=== PATIENT | female | born 1995 | race Hispanic/Latino ===

== ENCOUNTER 2017-04-09 17:16 | Emergency (ER) | payer SELFPAY ==
[~2017-04-09 17:16] MED LIST: FERR325C PO; PREN-64 PO
== END 2017-04-09 18:13 | disposition home or self-care (01) ==
LOC: EDH 17:16
DX: L02.219 Cutaneous abscess of trunk, unspecified (principal)
CPT/HCPCS: 81025

== ENCOUNTER 2017-09-20 11:42 | Inpatient (IN) | payer MEDICAID, OTHER ==
[~2017-09-20] VITALS: Ht 160 cm; Wt 71.9 kg
[2017-09-20 12:25] LABS: BASOPHILS % (AUTO) 0.1 % (0.0-5.0); EOSINOPHILS % (AUTO) 0.1 % (0.0-8.0); HEMATOCRIT 28.9 % (36-48); LYMPHOCYTES % (AUTO) 2.6 % (21.0-51.0); MEAN CORPUSCULAR HGB CONC 32.8 g/dL (32.0-36.0); MEAN CORPUSCULAR VOLUME 76.3 fL (80-100); MONOCYTES % (AUTO) 1.5 % (3.0-13.0); NEUTROPHILS % (AUTO) 95.7 % (40.0-77.0); PLATELET COUNT (AUTO) 252 K/uL (130-400); RED BLOOD CELL COUNT(AUTO) 3.78 MIL/uL (4.00-5.50); RED CELL DISTRIBUTION WIDTH 15.6 % (11.0-15.5); WHITE BLOOD COUNT (AUTO) 12.7 K/uL (4.8-10.8)
[2017-09-20 12:38] LABS: APPEARANCE,URINE Turbid (CLEAR); BILIRUBIN,URINE Negative (NEGATIVE); COLOR,URINE Dark Yellow (YELLOW); GLUCOSE, URINE (UA) Negative (NEGATIVE); KETONES,URINE Negative (NEGATIVE); LEUKOCYTE ESTERASE ,URINE Large (NEGATIVE); NITRATE,URINE Positive (NEGATIVE); OCCULT BLOOD,URINE Moderate (NEGATIVE); PROTEIN,URINE POS 2+ (NEGATIVE)
[2017-09-20 12:55] LABS: BACTERIA,URINE Moderate /HPF (None Seen); WBC,URINE >100 /HPF (0-1)
[2017-09-20 12:56] LABS: MUCUS,URINE Few LPF (None Seen); SQUAMOUS EPITHELIAL CELL,UR Moderate /HPF (0-2)
[2017-09-20] MEDS ORDERED: CEFTRIAXONE 1GM/D5W 50ML 50 ML IV SCH (13:00)
[2017-09-20] MEDS ORDERED: CEFAZOLIN 2GM / 50 ML 50 ML IV SCH (13:00)
[2017-09-20] MEDS ORDERED: CEFTRIAXONE SODIUM 1 GM IVP SCH (13:15)
[2017-09-20 13:42] VITALS: BP 100/59
[2017-09-20] MEDS: LACTATED RINGERS 1000ML 1,000 ML IV PRN ×2 (13:50→22:48)
[2017-09-20] MEDS: ACETAMINOPHEN 325 MG TAB PO PRN ×2 (13:51→18:57)
[2017-09-20] MEDS: CEFAZOLIN SODIUM 1 GM VIAL IVP SCH ×2 (15:18→22:49)
[2017-09-20 15:37] VITALS: BP 98/64
[2017-09-20 19:46] VITALS: BP 102/65
[2017-09-20 23:21] VITALS: BP 90/55
[2017-09-21 04:10] VITALS: BP 95/59
[2017-09-21] MEDS: CEFAZOLIN SODIUM 1 GM VIAL IVP SCH ×3 (06:31→20:16)
[2017-09-21] MEDS: LACTATED RINGERS 1000ML 1,000 ML IV PRN ×2 (06:35→14:03)
[2017-09-21 07:16] VITALS: BP 90/56
[2017-09-21 08:31] LABS: BASOPHILS % (AUTO) 0.2 % (0.0-5.0); HEMATOCRIT 26.7 % (36-48); LYMPHOCYTES % (AUTO) 10.7 % (21.0-51.0); MEAN CORPUSCULAR HEMOGLOBIN 25.2 pg (27.0-33.0); MEAN CORPUSCULAR HGB CONC 32.8 g/dL (32.0-36.0); MEAN CORPUSCULAR VOLUME 76.9 fL (80-100); MONOCYTES % (AUTO) 7.3 % (3.0-13.0); NEUTROPHILS % (AUTO) 80.8 % (40.0-77.0); PLATELET COUNT (AUTO) 235 K/uL (130-400); RED BLOOD CELL COUNT(AUTO) 3.48 MIL/uL (4.00-5.50); RED CELL DISTRIBUTION WIDTH 15.4 % (11.0-15.5); WHITE BLOOD COUNT (AUTO) 9.7 K/uL (4.8-10.8)
[2017-09-21] MEDS: ACETAMINOPHEN 325 MG TAB PO PRN ×2 (11:17→21:36)
[2017-09-21 11:22] VITALS: BP 97/55
[2017-09-21 15:40] VITALS: BP 92/62
[2017-09-21 20:30] VITALS: BP 111/71
[2017-09-21 22:35] VITALS: BP 100/66
[2017-09-22] MEDS: LACTATED RINGERS 1000ML 1,000 ML IV PRN ×2 (01:01→07:32)
[2017-09-22] MEDS: CEFAZOLIN SODIUM 1 GM VIAL IVP SCH ×2 (03:42→11:40)
[2017-09-22 03:55] VITALS: BP 98/66
[2017-09-22 07:33] LABS: BASOPHILS % (AUTO) 0.8 % (0.0-5.0); EOSINOPHILS % (AUTO) 0.5 % (0.0-8.0); HEMATOCRIT 27.1 % (36-48); LYMPHOCYTES % (AUTO) 12.9 % (21.0-51.0); MEAN CORPUSCULAR HEMOGLOBIN 25.1 pg (27.0-33.0); MEAN CORPUSCULAR HGB CONC 32.9 g/dL (32.0-36.0); MEAN CORPUSCULAR VOLUME 76.3 fL (80-100); MONOCYTES % (AUTO) 8.7 % (3.0-13.0); NEUTROPHILS % (AUTO) 77.1 % (40.0-77.0); PLATELET COUNT (AUTO) 233 K/uL (130-400); RED BLOOD CELL COUNT(AUTO) 3.56 MIL/uL (4.00-5.50); RED CELL DISTRIBUTION WIDTH 15.2 % (11.0-15.5); WHITE BLOOD COUNT (AUTO) 9.1 K/uL (4.8-10.8)
[2017-09-22 08:00] VITALS: BP 103/69
[2017-09-22 12:00] VITALS: BP 102/64
== END 2017-09-22 15:40 | disposition home or self-care (01) | DRG 566 ==
LOC: OBSVTOIN 11:42 → LDH 11:42 → WSH 13:29
PROVIDERS: ADMIT Obstetrics & Gynecology; ATTEND Obstetrics & Gynecology
DX: O99.612 Diseases of the digestive system complicating pregnancy, second trimester (principal); M54.9 Dorsalgia, unspecified; R10.9 Unspecified abdominal pain; R51 Headache; Z3A.23 23 weeks gestation of pregnancy
CPT/HCPCS: 36415; 81001; 85025; 87088; 87186; A4218; J0690; J0696; J7120

== ENCOUNTER 2017-12-21 09:28 | Observation (INO) | payer MEDICAID ==
[~2017-12-21] VITALS: Ht 160 cm; Wt 74.4 kg
[2017-12-21] MEDS: LACTATED RINGERS 1000ML 1,000 ML IV SCH ×2 (17:15→20:00)
[2017-12-21] MEDS ORDERED: CEFTRIAXONE SODIUM 1 GM IVP SCH (17:15)
[2017-12-21 18:16] LABS: APPEARANCE,URINE Clear (CLEAR); BILIRUBIN,URINE Negative (NEGATIVE); COLOR,URINE Yellow (YELLOW); GLUCOSE, URINE (UA) Negative (NEGATIVE); KETONES,URINE Negative (NEGATIVE); LEUKOCYTE ESTERASE ,URINE Moderate (NEGATIVE); NITRATE,URINE Negative (NEGATIVE); OCCULT BLOOD,URINE Small (NEGATIVE); PH,URINE 6.5 (5.0-8.0); PROTEIN,URINE Negative (NEGATIVE)
[2017-12-21 18:28] LABS: BACTERIA,URINE None Seen /HPF (None Seen)
[2017-12-21] MEDS ORDERED: LACTATED RINGERS 1000ML 1,000 ML IV PRN (20:13)
[2017-12-21 20:26] LABS: HEMATOCRIT 26.5 % (36-48); MEAN CORPUSCULAR HEMOGLOBIN 21.3 pg (27.0-33.0); MEAN CORPUSCULAR HGB CONC 30.5 g/dL (32.0-36.0); PLATELET COUNT (AUTO) 216 K/uL (130-400); RED BLOOD CELL COUNT(AUTO) 3.79 MIL/uL (4.00-5.50); RED CELL DISTRIBUTION WIDTH 16.7 % (11.0-15.5); WHITE BLOOD COUNT (AUTO) 11.7 K/uL (4.8-10.8)
[2017-12-21] MEDS ORDERED: BUTORPHANOL TARTRATE 2 MG/ML IVP ONE (23:00)
[2017-12-21] MEDS ORDERED: ACETAMINOPHEN EXTRA STRENGTH 500 MG TABLET PO SCH (23:00)
[2017-12-21] MEDS ORDERED: BUTORPHANOL TARTRATE 2 MG/ML ONE (23:18)
[2017-12-21] MEDS ORDERED: ACETAMINOPHEN EXTRA STRENGTH 500 MG TABLET ONE (23:19)
[2017-12-23 08:11] LABS: HEPATITIS Bs ANTIGEN SCREEN P Negative (Negative)
== END 2017-12-22 11:19 | disposition home or self-care (01) ==
LOC: UNDOADMOB 09:28 → LDH 09:28
PROVIDERS: ADMIT Obstetrics & Gynecology; ATTEND Obstetrics & Gynecology
DX: O47.03 False labor before 37 completed weeks of gestation, third trimester (principal); O26.893 Other specified pregnancy related conditions, third trimester; R10.2 Pelvic and perineal pain; Z3A.36 36 weeks gestation of pregnancy
CPT/HCPCS: 36415; 81001; 85027; 86592; 86850; 86900; 86901; 87340; 96374; G0378 ×20; J0595; J0696; J7120; 96360; 96361

== ENCOUNTER 2018-01-29 19:06 | Emergency (ER) | payer MEDICAID ==
[2018-01-29] MEDS ORDERED: DEXAMETHASONE SOD PHOSPHATE 10MG/ML 1ML VIAL ONE (20:11)
[2018-01-29] MEDS ORDERED: PROCHLORPERAZINE EDISYLATE 10 MG/2 ML VIAL ONE (20:11)
[2018-01-29] MEDS ORDERED: SODIUM CHLORIDE 0.9% 1000ML 1,000 ML IV ONE (20:11)
[2018-01-29] MEDS ORDERED: DIPHENHYDRAMINE HCL 25 MG CAPSULE ONE (20:11)
[2018-01-29 20:14] LABS: APPEARANCE,URINE Clear (CLEAR); BILIRUBIN,URINE Negative (NEGATIVE); COLOR,URINE Yellow (YELLOW); GLUCOSE, URINE (UA) Negative (NEGATIVE); KETONES,URINE Trace mg/dL (NEGATIVE); LEUKOCYTE ESTERASE ,URINE Small (NEGATIVE); NITRATE,URINE Negative (NEGATIVE); OCCULT BLOOD,URINE Negative (NEGATIVE); PH,URINE 5.5 (5.0-8.0); PROTEIN,URINE POS 1+ (NEGATIVE); UROBILINOGEN,URINE 0.2 mg/dL (0.2-1.0)
[2018-01-29 20:16] LABS: HCG,QUAL RESULT NEGATIVE (NEGATIVE)
[2018-01-29 20:26] LABS: RBC,URINE 0-1 /HPF (0-1)
[2018-01-29 20:27] LABS: BACTERIA,URINE Few /HPF (None Seen); HYALINE CASTS, URINE 0-1 /LPF (0-1 /LPF); MUCUS,URINE Many LPF (None Seen); SQUAMOUS EPITHELIAL CELL,UR Moderate /HPF (0-2); TRICHOMONAS,URINE None Seen /LPF (None Seen); YEAST,URINE BUDDING None Seen /HPF (None Seen)
== END 2018-01-29 21:11 | disposition home or self-care (01) ==
LOC: EDH 19:06
DX: R51 Headache (principal); R11.0 Nausea
CPT/HCPCS: 81001; 81025; 96374; 96375; 99284; J0780; J1100; J7030; Q0163

== ENCOUNTER 2018-05-27 20:17 | Emergency (ER) | payer MEDICAID, OTHER ==
[2018-05-27 20:48] LABS: BASOPHILS % (AUTO) 0.7 % (0.0-5.0); EOSINOPHILS % (AUTO) 3.2 % (0.0-8.0); HEMATOCRIT 33.6 % (36-48); LYMPHOCYTES % (AUTO) 28.5 % (21.0-51.0); MEAN CORPUSCULAR HEMOGLOBIN 23.2 pg (27.0-33.0); MEAN CORPUSCULAR HGB CONC 32.1 g/dL (32.0-36.0); MEAN CORPUSCULAR VOLUME 72.4 fL (80-100); MONOCYTES % (AUTO) 7.6 % (3.0-13.0); PLATELET COUNT (AUTO) 349 K/uL (130-400); RED BLOOD CELL COUNT(AUTO) 4.64 MIL/uL (4.00-5.50); RED CELL DISTRIBUTION WIDTH 16.3 % (11.0-15.5); WHITE BLOOD COUNT (AUTO) 8.5 K/uL (4.8-10.8)
[2018-05-27] MEDS ORDERED: SODIUM CHLORIDE 0.9% 1000ML 1,000 ML IV ONE (20:50)
[2018-05-27 20:59] LABS: CREATININE 0.5 mg/dL (0.5-1.5); POTASSIUM 3.4 mmol/L (3.5-5.1)
[2018-05-27 21:58] LABS: APPEARANCE,URINE CLEAR (CLEAR); BILIRUBIN,URINE NEGATIVE (NEGATIVE); COLOR,URINE YELLOW (YELLOW); GLUCOSE, URINE (UA) NEGATIVE (NEGATIVE); KETONES,URINE NEGATIVE (NEGATIVE); LEUKOCYTE ESTERASE ,URINE NEGATIVE (NEGATIVE); NITRATE,URINE NEGATIVE (NEGATIVE); OCCULT BLOOD,URINE LARGE (NEGATIVE); PROTEIN,URINE NEGATIVE (NEGATIVE); UROBILINOGEN,URINE 0.2 mg/dL (0.2-1.0)
[2018-05-27 22:13] LABS: MUCUS,URINE Few LPF (None Seen)
[2018-05-27 22:14] LABS: BACTERIA,URINE Few /HPF (None Seen)
[2018-05-27] MEDS ORDERED: KETOROLAC TROMETHAMINE 15MG/ML ONE (22:25)
== END 2018-05-27 22:34 | disposition home or self-care (01) ==
LOC: EDH 20:17
DX: O20.0 Threatened abortion (principal); Z3A.08 8 weeks gestation of pregnancy
CPT/HCPCS: 36415; 76801; 80048; 81001; 84702; 85025; 86850; 86900; 86901; 96374; 99284; J1885; J7030

== ENCOUNTER 2018-06-18 05:52 | Day surgery (SDC) | payer MEDICAID, MEDICARE ==
[2018-06-17 16:45] VITALS: BP 102/62
[2018-06-17 17:09] LABS: BASOPHILS % (AUTO) 0.7 % (0.0-5.0); EOSINOPHILS % (AUTO) 2.9 % (0.0-8.0); HEMATOCRIT 33.3 % (36-48); MEAN CORPUSCULAR HEMOGLOBIN 22.9 pg (27.0-33.0); MEAN CORPUSCULAR HGB CONC 31.6 g/dL (32.0-36.0); MEAN CORPUSCULAR VOLUME 72.5 fL (80-100); MONOCYTES % (AUTO) 6.2 % (3.0-13.0); NEUTROPHILS % (AUTO) 62.2 % (40.0-77.0); NUCLEATED RED BLOOD CELLS 0.1 % (0.0-0.19); PLATELET COUNT (AUTO) 343 K/uL (130-400); RED BLOOD CELL COUNT(AUTO) 4.59 MIL/uL (4.00-5.50); RED CELL DISTRIBUTION WIDTH 17.3 % (11.0-15.5)
[~2018-06-18] VITALS: Ht 160 cm; Wt 70.4 kg
[2018-06-18] VITALS (8 sets, daily range): BP systolic 85–111; BP diastolic 52–72
[~2018-06-18 05:52] MED LIST changes: -PREN-64 PO
[2018-06-18] MEDS ORDERED: LACTATED RINGERS 1000ML 1,000 ML IV ONE (06:00)
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
[2018-06-18] MEDS ORDERED: GLYCOPYRROLATE 1 MG/5 ML SYRINGE ONE (06:34)
[2018-06-18] MEDS ORDERED: MIDAZOLAM HCL 1 MG/ML 2ML VIAL ONE (06:34)
[2018-06-18] MEDS ORDERED: PROPOFOL 10 MG/ML 20ML VIAL IV ONE (06:34)
[2018-06-18] MEDS ORDERED: FENTANYL CITRATE PF 50 MCG/1 ML 2ML VIAL ONE (06:34)
[2018-06-18] MEDS ORDERED: OXYTOCIN 10 USP UNITS/ML ONE (06:49)
[2018-06-18] MEDS ORDERED: OXYTOCIN-LR 20 UNITS/1000 ML 1,000 ML IV ONE (07:28)
== END 2018-06-18 10:00 | disposition home or self-care (01) ==
LOC: DAH 05:52 → MERGE 15:30
PROVIDERS: ATTEND Obstetrics & Gynecology
DX: O02.1 Missed abortion (principal); Z79.899 Other long term (current) drug therapy; Z98.890 Other specified postprocedural states
CPT/HCPCS: 36415; 59820; 85025; 86850; 86900; 86901; 88305; A4606; J2250; J2590 ×2; J2704; J3010; J3490; J7120 ×2

== ENCOUNTER 2019-05-29 16:29 | Observation (INO) | payer MEDICAID ==
[2019-05-29] MEDS ORDERED: LACTATED RINGERS 1000ML 1,000 ML IV SCH (16:45)
[2019-05-29] MEDS ORDERED: CEFTRIAXONE SODIUM 1 GM ONE (17:39)
[2019-05-30] MEDS ORDERED: CEFTRIAXONE SODIUM 1 GM IV SCH (09:00)
== END 2019-05-29 19:25 | disposition home or self-care (01) ==
LOC: LDH 16:29
PROVIDERS: ADMIT Specialist; ATTEND Specialist
DX: O26.893 Other specified pregnancy related conditions, third trimester (principal); R10.2 Pelvic and perineal pain; Z3A.29 29 weeks gestation of pregnancy
CPT/HCPCS: G0378 ×3; J0696; J7120 ×3; 96360; 96374

== ENCOUNTER 2019-06-22 17:45 | Observation (INO) | payer MEDICAID ==
[~2019-06-22] VITALS: Ht 160 cm; Wt 81.6 kg
[2019-06-22 18:29] LABS: APPEARANCE,URINE Clear (CLEAR); BILIRUBIN,URINE Negative (NEGATIVE); COLOR,URINE Yellow (YELLOW); GLUCOSE, URINE (UA) Negative (NEGATIVE); KETONES,URINE 15 mg/dL (NEGATIVE); LEUKOCYTE ESTERASE ,URINE Small (NEGATIVE); NITRATE,URINE Negative (NEGATIVE); OCCULT BLOOD,URINE Negative (NEGATIVE); PROTEIN,URINE Negative (NEGATIVE)
[2019-06-22 18:40] LABS: BACTERIA,URINE Few /HPF (None Seen); RBC,URINE None Seen /HPF (0-1); SQUAMOUS EPITHELIAL CELL,UR 0-2 /HPF (0-2); WBC,URINE 0-1 /HPF (0-1)
[2019-06-22] MEDS ORDERED: CEFTRIAXONE SODIUM 1 GM IVP SCH (20:30)
[2019-06-22] MEDS ORDERED: LACTATED RINGERS 1000ML 1,000 ML IV SCH (22:45)
[2019-06-22] MEDS ORDERED: TERBUTALINE SULFATE VIAL 1MG/ML SQ PRN (22:45)
[2019-06-22] MEDS ORDERED: LACTATED RINGERS 1000ML IV ONE (22:45)
== END 2019-06-23 01:00 | disposition home or self-care (01) ==
LOC: EDH 17:45 → LDH 17:46
PROVIDERS: ADMIT Specialist; ATTEND Specialist
DX: O42.913 Preterm premature rupture of membranes, unspecified as to length of time between rupture and onset of labor, third trimester (principal); O41.93X0 Disorder of amniotic fluid and membranes, unspecified, third trimester, not applicable or unspecified; Z3A.32 32 weeks gestation of pregnancy
CPT/HCPCS: 76815; 81001; 99284; G0378 ×6; J0696; J3105; J7120; 96360; 96361; 96372

== ENCOUNTER 2019-07-10 11:49 | Inpatient (IN) | payer MEDICAID ==
[~2019-07-10] VITALS: Ht 160 cm; Wt 82.6 kg
[2019-07-10] MEDS ORDERED: LACTATED RINGERS 1000ML 1,000 ML IV PRN (13:32)
[2019-07-10 13:43] LABS: HEMATOCRIT 27.8 % (36-48); MEAN CORPUSCULAR HEMOGLOBIN 20.7 pg (27.0-33.0); MEAN CORPUSCULAR HGB CONC 29.1 g/dL (32.0-36.0); MEAN CORPUSCULAR VOLUME 71.1 fL (79-99); PLATELET COUNT (AUTO) 313 K/uL (130-400); RED BLOOD CELL COUNT(AUTO) 3.91 MIL/uL (4.00-5.50); RED CELL DISTRIBUTION WIDTH 16.6 % (11.0-15.5); WHITE BLOOD COUNT (AUTO) 8.9 K/uL (4.8-10.8)
[2019-07-10 13:49] LABS: APPEARANCE,URINE Clear (CLEAR); BILIRUBIN,URINE Negative (NEGATIVE); COLOR,URINE Yellow (YELLOW); GLUCOSE, URINE (UA) Negative (NEGATIVE); KETONES,URINE Negative (NEGATIVE); LEUKOCYTE ESTERASE ,URINE Trace (NEGATIVE); NITRATE,URINE Negative (NEGATIVE); OCCULT BLOOD,URINE Negative (NEGATIVE); PH,URINE 7.5 (5.0-8.0); PROTEIN,URINE Negative (NEGATIVE); UROBILINOGEN,URINE 0.2 mg/dL (0.2-1.0)
[2019-07-10 14:19] LABS: BACTERIA,URINE Rare /HPF (None Seen); RBC,URINE 0-1 /HPF (0-1); SQUAMOUS EPITHELIAL CELL,UR Rare /HPF (0-2); WBC,URINE 0-1 /HPF (0-1)
[2019-07-10 14:27] VITALS: BP 95/53
[2019-07-10] MEDS ORDERED: AMPICILLIN 2GM+NS 100ML 100 ML IV SCH (15:00)
[2019-07-10] MEDS ORDERED: OXYTOCIN-LR 20 UNITS/1000 ML 1,000 ML IV SCH (15:15)
[2019-07-10] MEDS: AMPICILLIN 1GM+NS 50ML 50 ML IV SCH ×2 (19:47→23:20)
[2019-07-11] MEDS: AMPICILLIN 1GM+NS 50ML 50 ML IV SCH ×3 (03:22→23:00)
[2019-07-11 08:09] LABS: HEPATITIS Bs ANTIGEN SCREEN P Negative (Negative)
[2019-07-11] MEDS ORDERED: MEPERIDINE-PF 50 MG/ML SYG IVP SCH (09:45)
[2019-07-11] MEDS ORDERED: PROMETHAZINE HCL 25 MG/ML 1ML AMPULE IM SCH (09:45)
[2019-07-11] MEDS ORDERED: ACETAMINOPHEN-CODEINE 300/30MG TAB PO PRN (11:30)
[2019-07-11] MEDS ORDERED: MEASLES/MUMPS/RUBELLA VACCINE, LIVE 0.5 ML/VIAL SQ PRN (11:30)
[2019-07-11] MEDS ORDERED: LANOLIN 30GM OINTMENT TP PRN (11:30)
[2019-07-11] MEDS ORDERED: DIPH,PERTUSS(ACELL),TET VAC/PF 0.5 ML VIAL IM PRN (11:30)
[2019-07-11] MEDS ORDERED: OXYTOCIN-LR 20 UNITS/1000 ML 1,000 ML IV SCH (11:30)
[2019-07-11] MEDS ORDERED: ACETAMINOPHEN 325 MG TAB PO PRN (11:30)
[2019-07-11] MEDS ORDERED: WITCH HAZEL 1 PAD TP PRN (11:30)
[2019-07-11] MEDS ORDERED: BENZOCAINE/LANOLIN/ALOE VERA 60 ML AEROSOL TP PRN (11:30)
[2019-07-11 12:50] VITALS: BP 118/79
--- NOTE | 2019-07-11 12:50 | NUR ---
REPORT RECEIVED FROM KAYLENE BLACK AND PATIENT CARE TRANSFERED AT THIS TIME. PATIENT STATES HAVING PAIN OF 5 ON SCALE OF 0 TO 10 AND AGREED TO TAKE MOTRIN ORDERED.
[2019-07-11] MEDS ORDERED: FERS325 PO (14:13)
[2019-07-11] MEDS ORDERED: PREN-68 PO (14:13)
[2019-07-11] MEDS: IBUPROFEN 600 MG TABLET PO PRN (14:30)
[2019-07-11 16:18] VITALS: BP 109/66
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
[2019-07-11 19:53] VITALS: BP 94/71
[2019-07-11] MEDS: DOCUSATE SODIUM 100 MG CAP PO SCH (20:36)
[2019-07-11 23:27] VITALS: BP 95/54
[2019-07-12] MEDS: AMPICILLIN 1GM+NS 50ML 50 ML IV SCH ×2 (03:00→07:00)
[2019-07-12 03:35] VITALS: BP 98/71
[2019-07-12 07:56] VITALS: BP 118/75
--- NOTE | 2019-07-12 09:00 | NUR ---
DR. LUJAN CALLED AND UPDATE ON PATIENT GIVEN. PATIENT IS STABLE AND HAS ONLY COMPLAINED OF UTERINE CRAMPING. PATIENT IS A [employer] AT .
[2019-07-12] MEDS: DOCUSATE SODIUM 100 MG CAP PO SCH (09:03)
[2019-07-12] MEDS: IBUPROFEN 600 MG TABLET PO PRN (09:04)
--- NOTE | 2019-07-12 10:30 | NUR ---
DISCHARGE INSTRUCTIONS GIVEN AND PATIENT WAS GIVEN INSTRUCTIONS ON A HIGH IRON DIET AND IRON TABLETS. ENCOURAGED PATIENT TO CONTINUE TAKING VITAMINS AND IRON TABLETS SHE WAS SUPPOSED TO BE TAKING DURING . INSTRUCTED PATIENT TO TAKE OVER THE COUNTER MOTRIN FOR PAIN. VERBALIZED UNDERSTANDING INSTRUCTIONS GIVEN.
[2019-07-12 11:16] VITALS: BP 93/55
[2019-07-12 15:59] VITALS: BP 99/61
--- NOTE | 2019-07-12 18:35 | NUR ---
PATIENT WAS TAKEN VIA W/C CARRYING BABY IN ARMS AND WAS DISCHARGED TO HER SIGNIFICANT OTHER ION STABLE CONDITION. PATIENT DENIES PAIN.
== END 2019-07-12 18:35 | disposition home or self-care (01) | DRG 560 ==
LOC: LDH 11:49 → WSH 07-11 12:43
PROVIDERS: ADMIT Specialist; ATTEND Specialist
PROC: 10E0XZZ Delivery of Products of Conception, External Approach (ICD-10-PCS; principal; 2019-07-11)
PROC: 10907ZC Drainage of Amniotic Fluid, Therapeutic from Products of Conception, Via Natural or Artificial Opening (ICD-10-PCS; 2019-07-11)
PROC: 3E0234Z Introduction of Serum, Toxoid and Vaccine into Muscle, Percutaneous Approach (ICD-10-PCS; 2019-07-11)
DX: O41.03X0 Oligohydramnios, third trimester, not applicable or unspecified (principal); Z37.0 Single live birth; Z23 Encounter for immunization; Z3A.35 35 weeks gestation of pregnancy
CPT/HCPCS: 36415; 81001; 85027; 86592; 86850; 86900; 86901; 87340; 90715; G0378; J0290; J2175; J2590

== ENCOUNTER 2019-09-22 06:55 | Day surgery (SDC) | payer MEDICAID ==
[2019-09-17 16:04] LABS: BASOPHILS % (AUTO) 0.5 % (0.0-5.0); EOSINOPHILS % (AUTO) 3.7 % (0.0-8.0); MEAN CORPUSCULAR HEMOGLOBIN 22.9 pg (27.0-33.0); MEAN CORPUSCULAR VOLUME 76.5 fL (79-99); MONOCYTES % (AUTO) 8.3 % (3.0-13.0); NEUTROPHILS % (AUTO) 60.3 % (40.0-77.0); PLATELET COUNT (AUTO) 329 K/uL (130-400); RED BLOOD CELL COUNT(AUTO) 4.97 MIL/uL (4.00-5.50); RED CELL DISTRIBUTION WIDTH 20.8 % (11.0-15.5); WHITE BLOOD COUNT (AUTO) 9.1 K/uL (4.8-10.8)
[2019-09-19 17:14] VITALS: BP 114/67
[2019-09-19 17:29] VITALS: BP 114/67
[~2019-09-22] VITALS: Ht 167.6 cm; Wt 78.3 kg
[2019-09-22] VITALS (19 sets, daily range): BP systolic 92–116; BP diastolic 52–70
[~2019-09-22 06:55] MED LIST changes: +FERS325 PO; +PREN-68 PO
[2019-09-22] MEDS ORDERED: LACTATED RINGERS 1000ML 1,000 ML IV ONE (08:13)
[2019-09-22] MEDS ORDERED: ONDANSETRON HCL 4 MG/2 ML VIAL ONE (10:17)
[2019-09-22] MEDS ORDERED: MIDAZOLAM HCL 1 MG/ML 2ML VIAL ONE (10:17)
[2019-09-22] MEDS ORDERED: DEXAMETHASONE SOD PHOSPHATE 10MG/ML 1ML VIAL ONE (10:17)
[2019-09-22] MEDS ORDERED: SUCCINYLCHOLINE CHLORIDE 20 MG/ML 10 ML VIAL ONE (10:17)
[2019-09-22] MEDS ORDERED: LIDOCAINE PF 2% 5ML ABBOJECT ONE (10:17)
[2019-09-22] MEDS ORDERED: FENTANYL CITRATE PF 50 MCG/1 ML 2ML VIAL ONE (10:18)
[2019-09-22] MEDS ORDERED: NEOSTIGMINE 5MG/5ML SYR IV ONE (10:18)
[2019-09-22] MEDS ORDERED: PROPOFOL 10 MG/ML 20ML VIAL IV ONE (10:18)
[2019-09-22] MEDS ORDERED: GLYCOPYRROLATE 1 MG/5 ML SYRINGE ONE (10:18)
[2019-09-22] MEDS ORDERED: ROCURONIUM 10MG/1ML SYR 10 MG/ML ML ONE (10:18)
[2019-09-22] MEDS ORDERED: MEPERIDINE-PF 25 MG/ML SYG ONE ×2 (12:07→12:24)
--- NOTE | 2019-09-22 12:55 | NUR ---
POST OP PT RECEIVED POST OP LAP BTL. PT HAS BANDAIDS X2 TO ABDOMEN WITH SMALL BLOOD SHADOW STAINS. OUTLINED STAINS WITH INK. PT ORIENTED TO ROOM AND CALL LIGHT. WILL CONTINUE TO MONITOR PT.
--- NOTE | 2019-09-22 13:25 | NUR ---
C/O PT C/O URGE TO URINATE AND NOT ABLE TO GO WITH DISCOMFORT TO SUPRAPUBIC AREA. PT DID ATTEMPT TO VOID BUT REPORTED SHE WAS ONLY ABLE TO GO VERY LITTLE. HAD DR REJI DAVILA WILL WAIT FOR CALL BACK.
--- NOTE | 2019-09-22 13:40 | NUR ---
REPORT RECEIVED CALL BACK FROM DR MENDOZA. INFORMED HIM OF PT COMPLAINT. RECEIVED ORDERS TO DO IN AND OUT CATH. Addendum: 09/22/19 at 1600 by FRANCINE JOHN RN RN PT IN AND OUT CATH DONE BUT ONLY ABOUT 50MLS REMOVED. PT REPORTED URGE TO URINATE IS GONE BUT DISCOMFORT TO LOWER ABDOMEN STILL THERE. INFORMED PT THAT IT IS DUE TO GAS AND SHE NEEDS TO START AMBULATING IN ORDER TO PASS GAS. PT VOICED UNDERSTANDING.
--- NOTE | 2019-09-22 14:20 | NUR ---
RECEIVED CALL BACK FROM DR MENDOZA. OK TO DISCHARGE PT AND INSTRUCT TO TAKE CLEAR LIQUIDS FOR TODAY AND THEN ADVANCE DIET TOMORROW. INSTRUCTIONS GIVEN TO SPOUSE. UNDERSTANDING VOICED. PT TAKEN OUT VIA W/C IN NO STABLE CONDITION. NO CHANGE TO BLOOD SHADOW STAINS ON BANDAIDS NOTED
== END 2019-09-22 14:20 | disposition home or self-care (01) ==
LOC: DAH 06:55
PROVIDERS: ATTEND Specialist
DX: Z30.2 Encounter for sterilization (principal); E66.9 Obesity, unspecified
CPT/HCPCS: 36415 ×2; 58671; 84703; 85025; 86850 ×2; 86900 ×2; 86901 ×2; A4215 ×4; A4216; A4221 ×2; A4222 ×2; A4223 ×4; A4264; A4351; A4606; A4663 ×2; A4930; A6260; C1769 ×2; J0330; J1100; J2001; J2175 ×2; J2250; J2405; J2704; J2710; J3010; J3490; J7030; J7120; U0003

== ENCOUNTER 2022-08-15 15:05 | Emergency (ER) | payer MEDICAID ==
[~2022-08-15] VITALS: Ht 160 cm; Wt 81.6 kg
[2022-08-15 17:24] LABS: BASOPHILS % (AUTO) 0.4 % (0.0-5.0); EOSINOPHILS % (AUTO) 1.9 % (0.0-8.0); HEMATOCRIT 38.6 % (36-48); MEAN CORPUSCULAR HEMOGLOBIN 25.9 pg (27.0-33.0); MEAN CORPUSCULAR HGB CONC 31.3 g/dL (32.0-36.0); MEAN CORPUSCULAR VOLUME 82.7 fL (79-99); MONOCYTES % (AUTO) 7.5 % (3.0-13.0); NEUTROPHILS % (AUTO) 66.9 % (40.0-77.0); PLATELET COUNT (AUTO) 298 K/uL (130-400); RED BLOOD CELL COUNT(AUTO) 4.67 MIL/uL (4.00-5.50); RED CELL DISTRIBUTION WIDTH 14.2 % (11.0-15.5); WHITE BLOOD COUNT (AUTO) 7.6 K/uL (4.8-10.8)
[2022-08-15 17:50] LABS: CREATININE 0.5 mg/dL (0.5-1.5); POTASSIUM 3.6 mmol/L (3.5-5.1)
[2022-08-15 17:55] LABS: ALBUMIN 3.9 g/dL (3.5-5.0); TOTAL PROTEIN, SERUM 7.8 g/dL (6.0-8.3)
[2022-08-15 18:05] LABS: APPEARANCE,URINE CLEAR (CLEAR); BILIRUBIN,URINE NEGATIVE (NEGATIVE); COLOR,URINE LIGHT-YELLOW (YELLOW); GLUCOSE, URINE (UA) NEGATIVE (NEGATIVE); KETONES,URINE NEGATIVE (NEGATIVE); LEUKOCYTE ESTERASE ,URINE 75 Leu/uL (NEGATIVE); NITRATE,URINE NEGATIVE (NEGATIVE); OCCULT BLOOD,URINE LARGE (NEGATIVE); PH,URINE 5.5 (5.0-8.0); PROTEIN,URINE NEGATIVE (NEGATIVE); UROBILINOGEN,URINE 0.2 mg/dL (0.2-1.0)
[2022-08-15 18:06] LABS: HCG,QUALITATIVE URINE NEGATIVE (NEGATIVE)
[2022-08-15 18:19] LABS: BACTERIA,URINE MOD /HPF (None Seen); MUCUS,URINE RARE LPF (None Seen); SQUAMOUS EPITHELIAL CELL,UR MOD /HPF (0-2)
[2022-08-15] MEDS ORDERED: CEPH500B PO (18:29)
[2022-08-15] MEDS ORDERED: CEFTRIAXONE 1G VIAL IVPB ONE (18:30)
[2022-08-15 19:32] VITALS: BP 105/72
== END 2022-08-15 19:36 | disposition home or self-care (01) ==
LOC: EDH 15:05
DX: N39.0 Urinary tract infection, site not specified (principal)
CPT/HCPCS: 99285; 74176; 96365; 80053; 85025; 87077; 87088; 87186; 83605; 81001; 81025; 36415; J0696

== ENCOUNTER 2023-10-25 14:29 | Emergency (ER) | payer MEDICAID, OTHER ==
[~2023-10-25] VITALS: Ht 160 cm; Wt 81.6 kg
[~2023-10-25 14:29] MED LIST changes: +CEPH500B PO; -FERR325C PO; -FERS325 PO; -PREN-68 PO
[2023-10-25 15:04] LABS: APPEARANCE,URINE CLEAR (CLEAR); BILIRUBIN,URINE NEGATIVE (NEGATIVE); COLOR,URINE YELLOW (YELLOW); GLUCOSE, URINE (UA) NEGATIVE (NEGATIVE); KETONES,URINE NEGATIVE (NEGATIVE); LEUKOCYTE ESTERASE ,URINE NEGATIVE Leu/uL (NEGATIVE); NITRATE,URINE NEGATIVE (NEGATIVE); PH,URINE 6.5 (5.0-8.0); PROTEIN,URINE NEGATIVE (NEGATIVE); UROBILINOGEN,URINE 0.2 mg/dL (0.2-1.0)
[2023-10-25 15:05] LABS: ADD UA MICROSCOPIC YES
[2023-10-25 15:08] LABS: BACTERIA,URINE RARE /HPF (None Seen); MUCUS,URINE RARE LPF (None Seen); RBC,URINE 0-1 /HPF (0-1); SQUAMOUS EPITHELIAL CELL,UR RARE /HPF (0-2)
[2023-10-25 15:09] LABS: HCG,QUALITATIVE URINE NEGATIVE (NEGATIVE)
[2023-10-25 15:12] LABS: BASOPHILS # (AUTO) 0.05 K/uL (0.00-0.20); BASOPHILS % (AUTO) 0.5 % (0.0-5.0); EOSINOPHILS % (AUTO) 3.1 % (0.0-8.0); HEMATOCRIT 36.8 % (36-48); IMMATURE GRANULOCYTE ABSOLUTE 0.04 K/uL (0-1); LYMPHOCYTES # (AUTO) 2.9 K/uL (1.0-4.8); LYMPHOCYTES % (AUTO) 29.6 % (21.0-51.0); MEAN CORPUSCULAR HEMOGLOBIN 26.8 pg (27.0-33.0); MEAN CORPUSCULAR HGB CONC 32.1 g/dL (32.0-36.0); MEAN CORPUSCULAR VOLUME 83.4 fL (79-99); MONOCYTES # (AUTO) 0.6 K/uL (0.1-1.0); MONOCYTES % (AUTO) 6.5 % (3.0-13.0); NEUTROPHILS # (AUTO) 5.8 K/uL (1.8-7.7); NEUTROPHILS % (AUTO) 59.9 % (40.0-77.0); PLATELET COUNT (AUTO) 310 K/uL (130-400); RED BLOOD CELL COUNT(AUTO) 4.41 MIL/uL (4.00-5.50); RED CELL DISTRIBUTION WIDTH 14.9 % (11.0-15.5); WHITE BLOOD COUNT (AUTO) 9.7 K/uL (4.8-10.8)
[2023-10-25 15:28] LABS: CREATININE 0.7 mg/dL (0.5-1.0); POTASSIUM 3.4 mmol/L (3.5-5.1)
[2023-10-25 15:41] VITALS: BP 113/81; PULSE 79; RESP 16; O2SAT 100
== END 2023-10-25 16:31 | disposition home or self-care (01) ==
LOC: EDH 14:29
DX: N93.9 Abnormal uterine and vaginal bleeding, unspecified (principal); Z79.899 Other long term (current) drug therapy; Z98.890 Other specified postprocedural states
CPT/HCPCS: 36415; 80048; 81001; 81025; 85025

== ENCOUNTER → 2023-11-14 | Outpatient (CLI) | payer OTHER | END | disposition home or self-care (01) | LOC: RAH 11:56 | PROVIDERS: ATTEND Obstetrics & Gynecology | DX: N85.4 Malposition of uterus (principal); N93.9 Abnormal uterine and vaginal bleeding, unspecified | CPT/HCPCS: 76830 ==